=== PATIENT | female | born 1950 | race Caucasian/White ===

== ENCOUNTER 2023-12-09 15:41 | Inpatient (IN) ==
[2023-12-09] MEDS ORDERED: SODIUM CHLORIDE 0.9% 250 ML IV PRN (16:04)
--- NOTE | 2023-12-09 16:09 | Emergency Department Note ---
Impression & Plan Anemia, Generalized weakness ED Provider Note NAME: MICHELLE DOWNEY AGE: 73 SEX: F : 1950 ARRIVES VIA: Walk-In INFORMANT: Patient, ED PROVIDER(S): Cipriano Hardin DO CHIEF COMPLAINT: Weakness HPI: The patient is a 73-year-old female who presented to the emergency department for generalized weakness. She has been noticing shortness of breath with exertion as well as generalized weakness over the course the last few weeks. She states her symptoms became worse this week. She went to see her family doctor. She had outpatient laboratory studies ordered. She presented to the emergency department because of anemia. The patient denies having any black or tarry stools. She has not had a blood transfusion in the past. She denies having any chest pain. She has noticed some swelling in her legs ROS: See above HPI for pertinent positives & negatives. A total of 10 systems reviewed and were otherwise negative. PAST MEDICAL HISTORY: See Below PAST SURGICAL HISTORY: See Below FAMILY HISTORY: See Below SOCIAL HISTORY: See Below HOME MEDICATIONS: See Below ALLERGIES: See Below VITALS: See Below PHYSICAL EXAMINATION: GENERAL: Patient is awake alert in no acute distress patient is resting comfortably and showing no signs of anxiety EYES: The conjunctivae are pale. The pupils are round and reactive. EARS, NOSE, MOUTH AND THROAT: The nose is without any evidence of any deformity. Mucous membranes are moist. Tongue is midline. NECK: The neck is nontender and supple. RESPIRATORY: Normal respiratory effort is noted there is no evidence of wheezing rhonchi or rales CARDIOVASCULAR: Regular rate and rhythm noted there no murmurs rubs or gallops normal S1 normal S2. GASTROINTESTINAL: The abdomen is soft. Abdomen is nontender. Rectal exam revealed brown stool which was heme-negative. MUSCULOSKELETAL/EXTREMITIES: There is no evidence of gross deformity full range of motion is noted in the hips and shoulders. SKIN: Skin is dry. Skin was pale. Pedal edema was noted bilaterally. NEUROLOGIC: Patient is awake alert and oriented x3 MEDICAL DECISION MAKING: The patient is a 73-year-old female who presented to the emergency department at the request of her primary care physician. The patient has not been feeling well. The patient has been having generalized weakness. The patient had outpatient laboratory studies obtained which did reveal signs of anemia. The patient was not found to have signs of GI bleeding on my physical exam. I discussed the patient's laboratory and radiographic studies with her. I discussed her condition with the on-call [facility] hospitalist. They have agreed to evaluate the patient in the emergency department for further management and disposition. I did consent the patient for blood transfusion. Blood transfusion was ordered by myself. Triage Nursing notes reviewed. Prior medical records reviewed Vital Signs: reviewed and remarkable for no significant abnormalities Differential diagnosis: Infection, dehydration, metabolic abnormality, hypo/hyperglycemia, electrolyte disturbance, anemia, hypoxia, cardiac sources, intracerebral event, toxicologic, neurologic, as well as other pathologies. ER treatment provided: See below Diagnostics interpreted by me: ECG: EKG was obtained in the emergency department. My interpretation is normal sinus rhythm at 65 bpm. There is no ectopy. There is no acute ST segment abnormalities noted. No previous tracing was available Cardiac Monitoring: An order was placed for continuous cardiac monitoring. The monitor shows a rate of 64 bpm with sinus rhythm. Laboratory studies: As stated above and show below. Imaging studies: See below. Radiographic imaging was reviewed by myself Consultation(s): I discussed this case with Dr. Orta who is on-call for the [facility]. ED COURSE: Procedures: none Critical care time I have personally spent greater than 45 minutes of critical care time in the direct management of this patient. This includes bedside care, interpretation of diagnostic studies, and testing, discussion with consultants, patient, and family members, and other required patient management activities. This 45 minutes is in excess of all separately billable procedures. Past Med/Surg History Problem List (Updated 12/09/23 @ 20:49 by Garett Guerrero MD) Hernia of abdominal wall Decreased appetite Generalized weakness (Acute) Anemia (Acute) Encounter for Medicare annual wellness exam Dyslipidemia (high LDL; low HDL) Hyperlipidemia Chronic constipation Migraines Hypothyroid Arthritis Anxiety with depression Hypertension Type 2 diabetes mellitus GERD without esophagitis Vision problem Medical History Seizure Surgical History H/O left wrist surgery History of bladder suspension procedure History of partial hysterectomy Family History Sister Breast cancer Denies family history of Ovarian cancer Prostate cancer Myocardial infarction Colorectal cancer Social History Smoking Status: Never smoker Second Hand Exposure: Yes; Do You Dip or Chew Tobacco: No; Hx Alcohol Use: No Hx Substance Use: No Preferred Language: Ukrainian Communication Ability: Effective Visual Impairment: Limited Hearing Ability: Hard of Hearing 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 Beliefs That Will Affect Care: None marital status: / Current Living Situation: Family Current Living Situation Comment: lives with daughter current occupational status: employed current occupation: part-time at [employer] How many Children do You have: 4 Feels Safe at Home: Yes Childhood Exposure to Second-Hand Smoke: Yes (mother smoked ) Diet: regular Diet Comment: regular caffeine: Yes during the past year weight has: remained stable Dental Care, Regularly: No Physical Activity Frequency: Daily Physical Activity Frequency Comment: housework- walks at work Seatbelt Use: always Sunscreen Use: No Allergies Allergies Allergy/AdvReac Type Severity Reaction Status Date / Time No Known Allergies Allergy Verified 11/02/23 13:00 Home Meds Home Medications Medication Instructions Recorded Confirmed pantoprazole 40 mg tablet,delayed 40 mg PO DAILY PRN Heartburn 12/09/23 12/09/23 release Previous Rx's Medication Instructions Recorded blood-glucose meter (Blood Glucose #1 ea 05/08/21 Monitoring kit) atorvastatin 20 mg tablet 20 mg PO QPM #90 tabs 04/01/23 losartan 100 mg tablet 100 mg PO DAILY #90 tabs 07/06/23 sertraline 50 mg tablet 75 mg (1.5 x 50 mg) PO DAILY #135 11/02/23 tabs levothyroxine 125 mcg tablet 125 mcg PO DAILY #14 tabs 11/30/23 Results & Data (ED) Vital Signs Vital Signs - 24 hr 12/09/23 15:42 12/09/23 16:00 12/09/23 16:00 Temperature 37.0 C Temperature Source Temporal Artery Scan Pulse Rate 77 67 67 Pulse Rate from SpO2 Sensor 68 Respiratory Rate 19 16 Respiratory Effort / Characteristics Non-Labored Spontaneous Respiratory Depth Normal Blood Pressure 124/53 L Blood Pressure Mean 76 Pulse Oximetry 93 98 Oxygen Delivery Method Room Air Sepsis Recent Fever Within 48 Hours No Sepsis New/Unexplained Change in Mental Status No Sepsis Action Taken by Nursing No Action Required 12/09/23 16:20 12/09/23 16:36 12/09/23 17:18 Temperature Temperature Source Pulse Rate 68 66 Pulse Rate from SpO2 Sensor 68 68 Respiratory Rate 21 16 Respiratory Effort / Characteristics Respiratory Depth Blood Pressure Blood Pressure Mean Pulse Oximetry 94 93 95 Oxygen Delivery Method Room Air Sepsis Recent Fever Within 48 Hours Sepsis New/Unexplained Change in Mental Status Sepsis Action Taken by Nursing 12/09/23 17:33 12/09/23 18:03 12/09/23 18:15 Temperature Temperature Source Pulse Rate 70 71 70 Pulse Rate from SpO2 Sensor 69 72 69 Respiratory Rate 18 25 H 23 Respiratory Effort / Characteristics Respiratory Depth Blood Pressure Blood Pressure Mean Pulse Oximetry 97 96 95 Oxygen Delivery Method Sepsis Recent Fever Within 48 Hours Sepsis New/Unexplained Change in Mental Status Sepsis Action Taken by Nursing 12/09/23 18:30 12/09/23 18:30 12/09/23 18:48 Temperature 37 C Temperature Source Oral Pulse Rate 68 67 Pulse Rate from SpO2 Sensor 69 Respiratory Rate 21 22 Respiratory Effort / Characteristics Respiratory Depth Blood Pressure 131/62 131/62 143/67 H Blood Pressure Mean 85 86 92 Pulse Oximetry 95 96 Oxygen Delivery Method Sepsis Recent Fever Within 48 Hours Sepsis New/Unexplained Change in Mental Status Sepsis Action Taken by Nursing 12/09/23 18:50 12/09/23 19:00 12/09/23 19:05 Temperature 36.9 C Temperature Source Oral Pulse Rate 67 66 66 Pulse Rate from SpO2 Sensor 65 Respiratory Rate 21 22 18 Respiratory Effort / Characteristics Respiratory Depth Blood Pressure 143/67 H 137/79 Blood Pressure Mean 92 98 Pulse Oximetry 97 96 98 Oxygen Delivery Method Sepsis Recent Fever Within 48 Hours Sepsis New/Unexplained Change in Mental Status Sepsis Action Taken by Nursing 12/09/23 19:05 12/09/23 19:35 12/09/23 19:36 Temperature 36.9 C 36.9 C Temperature Source Oral Oral Pulse Rate 66 65 Pulse Rate from SpO2 Sensor 66 Respiratory Rate 18 21 Respiratory Effort / Characteristics Respiratory Depth Blood Pressure 144/71 H 142/63 H Blood Pressure Mean 95 89 Pulse Oximetry 97 96 Oxygen Delivery Method Sepsis Recent Fever Within 48 Hours Sepsis New/Unexplained Change in Mental Status Sepsis Action Taken by Nursing 12/09/23 19:57 12/09/23 20:01 12/09/23 20:03 Temperature Temperature Source Pulse Rate 69 71 Pulse Rate from SpO2 Sensor 70 70 Respiratory Rate 23 13 Respiratory Effort / Characteristics Respiratory Depth Blood Pressure 146/52 H Blood Pressure Mean 79 Pulse Oximetry 96 98 Oxygen Delivery Method Sepsis Recent Fever Within 48 Hours Sepsis New/Unexplained Change in Mental Status Sepsis Action Taken by Nursing 12/09/23 20:08 12/09/23 20:27 12/09/23 20:33 Temperature Temperature Source Pulse Rate 64 67 64 Pulse Rate from SpO2 Sensor 66 64 Respiratory Rate 18 20 Respiratory Effort / Characteristics Respiratory Depth Blood Pressure 142/74 H Blood Pressure Mean 96 Pulse Oximetry 93 93 Oxygen Delivery Method Sepsis Recent Fever Within 48 Hours Sepsis New/Unexplained Change in Mental Status Sepsis Action Taken by Alf Medications Current Medication List: was personally reviewed by me Laboratory Data Attestation: I reviewed the patient's lab results. 12/09/23 16:00 12/09/23 16:00 Lab Results 12/09/23 12/09/23 12/09/23 Range/Units 15:52 16:00 16:36 WBC 4.60 L (4.8-10.8) K/ul RBC 1.17 L (4.20-5.40) M/uL Hgb 5.6 L* (12.0-16.0) g/dl Hct 16.1 L* (37.0-47.0) % MCV 137.6 H (80.0-100.0) fL MCH 47.9 H (25.0-34.0) pg MCHC 34.8 (32.0-36.0) g/dL RDW Std Deviation 75.7 H (36.4-46.3) fL RDW Coeff of Harinder 18.3 H (11.5-14.5) % Plt Count 131 (130-400) K/uL MPV 11.3 (9.4-12.4) fL Immature Gran % (Auto) 0.2 % Neut % (Auto) 65.7 % Lymph % (Auto) 29.3 % [place] % (Auto) 3.7 % Eos % (Auto) 1.1 % Baso % (Auto) 0.0 % Reticulocyte % (Auto) 1.62 (0.50-2.00) % Neut # (Auto) 3.02 (1.40-6.50) K/uL Lymph # (Auto) 1.35 (1.20-3.40) K/uL [place] # (Auto) 0.17 (0.11-0.59) K/uL Eos # (Auto) 0.05 (0.00-0.50) K/uL Baso # (Auto) 0.00 (0.00-0.20) K/uL Reticulocyte # 0.020 (0.020-0.100) 10^6/uL Immature Gran # (Auto) 0.01 (0.01-0.20) K/uL Polychromasia 2+ Macrocytosis Present Ovalocytes 1+ PT 12.1 H (9.0-12.0) Seconds INR 1.1 (0.9-1.1) APTT 25 (21-31) Seconds PTT Ratio 0.9 Sodium 140 (136-145) mmol/L Potassium 3.9 (3.5-5.1) mmol/L Chloride 107 (98-107) mmol/L Carbon Dioxide 29 (21-32) mmol/L Anion Gap 4 (3-11) BUN 13 (6-23) mg/dl Creatinine 0.75 (0.6-1.2) mg/dl Est Cr Clr Drug Dosing 58.3 ml/min Est GFR ( Amer) 90.4 ml/min Est GFR (Non-Af Amer) 78.0 ml/min BUN/Creatinine Ratio 17.3 (10-20) Glucose 138 H (70-99(Fasting)) mg/dl Calcium 9.0 (8.6-10.3) mg/dl Iron 228 H (35-150) mcg/dl TIBC TNP Unsaturated IBC < 55 L (155-355) mcg/dl Transferrin % Sat TNP Ferritin 121.5 (8-388) ng/ml Total Bilirubin 2.3 H (0.2-1.0) mg/dl AST 39 (13-39) U/L ALT 30 (7-52) U/L Alkaline Phosphatase 66 (34-104) U/L Troponin I High Sens 3.3 (0-14) pg/ml Total Protein 6.6 (6.0-8.3) gm/dl Albumin 4.2 (3.4-5.0) gm/dl Globulin 2.4 L (2.5-4.0) gm/dl Albumin/Globulin Ratio 1.8 (0.9-2) Lipase 20 (11-82) U/L Vitamin B12 < 50 L (180-914) pg/ml Folate 20.14 (>5.38) ng/ml Blood Type A Positive Blood Type Recheck A Positive Antibody Screen NEGATIVE Crossmatch See Detail Administered Medications Discontinued Medications Ioversol (Optiray 320 125ml) 93 ml IV ONCE ONE Stop: 12/09/23 20:56 Last Admin: 12/09/23 20:55 Dose: 93 ml Documented By: АННА Imaging Data Attestation: I personally reviewed and interpreted this imaging study as follows: My Impression: 1 view chest x-ray was obtained in the emergency department. My interpretation is no free air or definite infiltrate, final report below. Radiologist's Impression: Chest X-Ray 12/09/23 16:04 XR chest 1V portable HISTORY: 73 years-old Female Chest pain, nonspecific COMPARISON: None TECHNIQUE: AP view of the chest FINDINGS: Cardiac silhouette is enlarged. Atherosclerosis of the aorta. No pneumothorax, pleural effusion or airspace consolidation. Mild linear left basilar atelectasis versus scarring. The bones of the chest appear grossly intact. Spondylitic spurring of the spine. IMPRESSION: Cardiomegaly without acute process. ACT 112: Negative or not required by law. The above report was generated using voice recognition software. It may contain grammatical, syntax or spelling errors. Electronically signed by: Thomas Henderson M.D. 12/09/2023 4:49 PM Discharge Plan Visit Data Chief Complaint: Referred by Doctor Stated Complaint: HEMOGLOBIN LOW ED Provider: Cipriano Hardin Discharge Problem: Anemia, Generalized weakness Patient Disposition: Admitted As Inpatient Discharge Instructions Interventions: ED Discharge Assessment Last Done: 12/09/23 20:52 Forms Stand Alone Forms: My [facility] [employer] Prescriptions Prescriptions: No Action (DME) blood-glucose meter [Blood Glucose Monitoring] Kit See Rx Instructions .ROUTE .MEDSUPPLY Qty: 1 0RF Rx Instructions: TEST ONCE DAILY; DX CODE- E11.9 atorvastatin 20 mg tablet 20 mg PO QPM Qty: 90 5RF losartan 100 mg tablet 100 mg PO DAILY Qty: 90 1RF levothyroxine 125 mcg tablet 125 mcg PO DAILY Qty: 14 0RF sertraline 50 mg tablet 75 mg PO DAILY Qty: 135 2RF pantoprazole 40 mg tablet,delayed release (DR/EC) 40 mg PO DAILY PRN (Reason: Heartburn) Referrals Referrals: Soren Gonzales CRNP [Primary Care Provider] - Discharge Problem: Anemia Qualifiers: Anemia type: unspecified type Qualified Code(s): D64.9 - Anemia, unspecified
[2023-12-09 16:38] LABS: Hematocrit (blood only) 16.1 % (37.0-47.0); Hemoglobin 5.6 g/dl (12.0-16.0); Mean Corpuscular Hemoglobin 47.9 pg (25.0-34.0); Mean Corpuscular Hgb Conc 34.8 g/dL (32.0-36.0); Mean Corpuscular Volume 137.6 fL (80.0-100.0); Mean Platelet Volume 11.3 fL (9.4-12.4); Platelet Count 131 K/uL (130-400); RDW Coefficient of Variation 18.3 % (11.5-14.5); RDW Standard Deviation 75.7 fL (36.4-46.3); Red Blood Count 1.17 M/uL (4.20-5.40)
[2023-12-09 16:48] LABS: Alanine Aminotransferase 30 U/L (7-52); Albumin Globulin Ratio 1.8 (0.9-2); Albumin Level 4.2 gm/dl (3.4-5.0); Alkaline Phosphatase 66 U/L (34-104); Anion Gap 4 (3-11); Aspartate Aminotransferase 39 U/L (13-39); BUN Creatinine Ratio 17.3 (10-20); Bilirubin,Total 2.3 mg/dl (0.2-1.0); Blood Urea Nitrogen 13 mg/dl (6-23); Carbon Dioxide 29 mmol/L (21-32); Chloride 107 mmol/L (98-107); Creatinine Clr Calc Pharmacy 58.3 ml/min; Est GFR (African American) 90.4 ml/min; Globulin 2.4 gm/dl (2.5-4.0); Glucose 138 mg/dl (70-99(Fasting)); Lipase 20 U/L (11-82); Potassium 3.9 mmol/L (3.5-5.1); Sodium 140 mmol/L (136-145); Total Protein 6.6 gm/dl (6.0-8.3)
--- NOTE | 2023-12-09 16:50 | XRay Report ---
XR chest 1V portable HISTORY: 73 years-old Female Chest pain, nonspecific COMPARISON: None TECHNIQUE: AP view of the chest FINDINGS: Cardiac silhouette is enlarged. Atherosclerosis of the aorta. No pneumothorax, pleural effusion or ai rspace consolidation. Mild linear left basilar atelectasis versus scarring. The bones of the chest ap pear grossly intact. Spondylitic spurring of the spine. IMPRESSION: Cardiomegaly without acute process. ACT 112: Negative or not required by law. The above report was generated using voice recognition software. It may contain grammatical, syntax o r spelling errors. Electronically signed by: Thomas Henderson M.D. 12/09/2023 4:49 PM
[2023-12-09 16:51] LABS: INR 1.1 (0.9-1.1); Partial Thromboplastin Ratio 0.9; Partial Thromboplastin Time 25 Seconds (21-31); Prothrombin Time 12.1 Seconds (9.0-12.0)
[2023-12-09 16:52] LABS: Troponin I High Sensitivity 3.3 pg/ml (0-14)
[2023-12-09 17:06] LABS: Eosinophils # (auto) 0.05 K/uL (0.00-0.50); Eosinophils % (auto) 1.1 %; Immature Granulocytes # (auto) 0.01 K/uL (0.01-0.20); Immature Granulocytes % (auto) 0.2 %; Lymphocytes # (auto) 1.35 K/uL (1.20-3.40); Lymphocytes % (auto) 29.3 %; Macrocytosis Present; Monocytes # (auto) 0.17 K/uL (0.11-0.59); Monocytes % (auto) 3.7 %; Neutrophils # (auto) 3.02 K/uL (1.40-6.50); Neutrophils % (auto) 65.7 %; Ovalocytes 1+; Polychromasia 2+; Reticulocyte % 1.62 % (0.50-2.00)
--- NOTE | 2023-12-09 18:46 | History & Physical Report ---
Date of Service December 09, 2023 Assessment & Plan (1) Anemia: (2) Generalized weakness: (3) Hypothyroid: (4) Dyslipidemia (high LDL; low HDL): (5) Anxiety with depression: (6) Hypertension: (7) Type 2 diabetes mellitus: (8) Decreased appetite: (9) Hernia of abdominal wall: Plan 1. Anemia/generalized weakness - patient with Hgb, 5.6 upon admission - 2 units RBC's (leukoreduced) ordered, being given - post RBC administration H&H ordered - H&H, q8hr - MCV, 137.6; RDW, 18.3; TBili, 2.3; Retic Ct, 1.62% - iron panel: Fe, 228; ferritin, 121.5; transferrin sat % - B12, < 50; folate, 20.14 - B12 very low --> 1000 mcg, IM, daily (consider pernicious anemia in addition to nutritional deficiency) - LDH, 2228; peripheral blood smear pending 2. Reducible mass/mass in lower abdominal cavity, decreased appetite - mildly tender, 3 yr history but patient had not brought to attention of PCP - decreased appetite over last few years, 45 lb weight loss in 2.5 years, estimates daily caloric intake of 400 kcal - TProt, WNL; albumin, WNL - CT (w/ IV contrast)-AP pending - phosphorus pending - consider appetite stimulant 3. Hypothyroidism - TSH, 0.394 - continue levothyroxine, 125 mcg, daily, AM 4. Dyslipidemia - continue Lipitor, 20 mg, PO, QHS 5. Anxiety/depression - continue Zoloft, 75 mg, PO, daily 6. Hypertension - continue losartan, 100 mg, PO, daily 7. T2DM - last A1C, 6.5; patient has stopped taking her metformin - insulin aspart ordered (for meals and carb correction), glargine not ordered given patient's decreased appetite and caloric intake FENGI: T2DM diet ordered, Disposition: Med-Tele Code Status: Full DVT prophylaxis: SCD History of Present Illness Chief Complaint: fatigue, less energy Primary Care Provider: DENNIS Richardson Patient is 73 yo F w/ PMHx of T2DM, HTN, hypothyroidism, chronic constipation, anxiety/depression, generalized weakness, leg swelling of 2-2.5 months (end of September) presents to the ED after outpatient labs today showed severe anemia (Hgb, 5.9; repeat Hgb in ED, 5.6. Patient noticed a few months ago that she was vomiting frequently (whitish-foamy stuff)and stopped taking many of her medications. Patient only continued levothyroxine, calcium, Lipitor, losartan. Patient continued taking intermittently the Protonix and sertraline. Patient has repeatedly declined a colonoscopy but was last screened for CRC using Cologuard about 8 months ago. Patient has not noticed any roseanne blood in her stool at all. Patient is a never smoker has not drank alcohol for ~ 4 yrs but was a social drinker in the past (< 7 drinks/week). Patient has not had much of an appetite for ~ 5-6 months. Typical daily intake has probably been ~ 400 calories and patient has lost 18 kg in last 2.5 yrs. Patient's last mammogram was in 2018. Patient has a family Hx of cancer--mom had stomach cancer, sister had breast cancer and lung cancer (was never smoker, from it in her 30s in 1985, 2 yrs older than pt) Patient is uncertain what she would like her code status to be. Allergies Allergy/AdvReac Type Severity Reaction Status Date / Time No Known Allergies Allergy Verified 11/02/23 13:00 Home Medications Medication Instructions Recorded Confirmed Type blood-glucose meter (Blood Glucose #1 ea 05/08/21 12/09/23 Rx Monitoring kit) atorvastatin 20 mg tablet 20 mg PO QPM #90 tabs 04/01/23 12/09/23 Rx losartan 100 mg tablet 100 mg PO DAILY #90 tabs 07/06/23 12/09/23 Rx sertraline 50 mg tablet 75 mg (1.5 x 50 mg) PO DAILY #135 11/02/23 12/09/23 Rx tabs levothyroxine 125 mcg tablet 125 mcg PO DAILY #14 tabs 11/30/23 12/09/23 Rx pantoprazole 40 mg tablet,delayed 40 mg PO DAILY PRN Heartburn 12/09/23 12/09/23 History release Past Med/Surg History Problem List (Updated 12/09/23 @ 20:49 by Garett Guerrero MD) Hernia of abdominal wall Decreased appetite Generalized weakness (Acute) Anemia (Acute) Encounter for Medicare annual wellness exam Dyslipidemia (high LDL; low HDL) Hyperlipidemia Chronic constipation Migraines Hypothyroid Arthritis Anxiety with depression Hypertension Type 2 diabetes mellitus GERD without esophagitis Vision problem Medical History Seizure Surgical History H/O left wrist surgery History of bladder suspension procedure History of partial hysterectomy Family History Sister Breast cancer Denies family history of Ovarian cancer Prostate cancer Myocardial infarction Colorectal cancer Social History Smoking Status: Never smoker Second Hand Exposure: Yes; Do You Dip or Chew Tobacco: No; Hx Alcohol Use: No Hx Substance Use: No Preferred Language: Georgian Communication Ability: Effective Visual Impairment: Limited Hearing Ability: Hard of Hearing Enzyme Chemist Required: No Beliefs That Will Affect Care: None marital status: / Current Living Situation: Family Current Living Situation Comment: lives with daughter current occupational status: employed current occupation: part-time at [employer] How many Children do You have: 4 Feels Safe at Home: Yes Childhood Exposure to Second-Hand Smoke: Yes (mother smoked ) Diet: regular Diet Comment: regular caffeine: Yes during the past year weight has: remained stable Dental Care, Regularly: No Physical Activity Frequency: Daily Physical Activity Frequency Comment: housework- walks at work Seatbelt Use: always Sunscreen Use: No Review of Systems Constitutional: + weakness, + anorexia and + weight loss (~ 45 lbs over 2.5 y rs) Eyes: + worsening vision (blurriness, patient knows she needs cataract surgery) Respiratory: no dyspnea Cardiovascular: + palpitations (baseline palpitations ) Gastrointestinal: + constipation (baseline) Genitourinary: no dysuria, no urinary frequency and no urinary urgency Neurologic: + unsteadiness, + generalized weakness, + loss of sensation (lower legs, cramps in feet, calves, hands), + tingling, + numbness (in feet) and + headache(s) (baseline MÁRQUEZ's) Psychiatric: + irritability, + anxiety and + difficul ty concentrating Physical Exam Constitutional: cooperative Respiratory: normal respiratory effort, lungs clear to auscultation Cardiovascular: Rate/Rhythm: regular rate and regular rhythm Heart Sounds: + murmur (noted over upper r. sternal border, radiates to carotid arteries) Gastrointestinal (Abdomen): Inspection/Auscultation: normal bowel sounds Percussion/Palpation: + hernia (probable reducible hernia/mass of lower abdomen) and + abdominal mass; abdomen nontender and abdomen not rigid Neurologic: normal touch/pain/proprioception, moves all extremities and awake Psychiatric: Orientation: alert, oriented x 3 and cooperative Results & Data Results & Data Vital Signs (Past 12 Hours) Vital Signs Temp Pulse Resp BP Pulse Ox O2 Del Method 12/09/23 18:30 37 C 68 21 131/62 95 12/09/23 17:33 70 18 97 12/09/23 17:18 66 16 95 12/09/23 16:36 68 21 93 12/09/23 16:20 94 Room Air 12/09/23 16:00 67 16 98 12/09/23 16:00 67 12/09/23 15:42 37.0 C 77 19 124/53 L 93 Room Air Supervising Physician Co-Signing Physician Notes Patient seen and examined, chart reviewed, case discussed with Dr. Spear and I agree with the assessment and plan as above except as otherwise noted Labs and images reviewed Gayla is a 73-year-old female with a history of type 2 diabetes, dyslipidemia, hypertension, GERD, anxiety/depression, heart palpitations who has not had colonoscopy and declined this at primary care visits who presents with generalized weakness with bilateral lower extremity swelling progressive over around 2 months. She has had Cologuard screening as an outpatient but has never had a colonoscopy, and denies hematochezia/melena. No epigastric pain. On ER assessment she is found to have a hemoglobin of 5.9 for which 2 units have been ordered for transfusion. Hemoccult is negative in the ER. She is normotensive, is not tachycardic, and minimally symptomatic despite a hemoglobin less than 6 is very consistent with chronic anemia and shows no signs of acute bleeding. BUN is not elevated discussed upper GI bleed and she has no epigastric pain. Differential does show macrocytosis cirrhosis with ovalocytes, and her MCV is 137 raising suspicion for B12 deficiency. B12/folate have been ordered Patient does have a family history of leukemia. Peripheral smear is pending. She is slightly leukopenic, she is not pancytopenic. Will continue to assess for nutritional deficiencies, if concern for aplastic anemia rises or abnormal cells are seen then will consult hematology. Patient has had significant weight loss with very poor p.o. intake only around 4 to 500 elza/day. Lipase is not elevated. She has a slightly elevated bilirubin, but transaminases are normal. Peripheral smear, LDH are pending to evaluate for potential hemolysis. No infectious symptoms agreeable to colonoscopy for colon cancer screening given her anemia. She does have a reducible left abdominal hernia. Endorses some abdominal discomfort. Is very concerned about potential cancer. CTA/P with contrast is pending. Agree with assessment and management above Addendum 944hrs B12 levels are undetectable. Folate levels normal. Unsaturated IBC is low with elevated serum iron and normal ferritin. Peripheral smear remains pending.? 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 Serum iron and bilirubin are elevated consistent with this. Peripheral smear is pending, if schistocytes are present this would be more consistent with intravascular hemolysis. Reticulocyte index 0.25, severely hypoproliferative. CT remains pending; given that her folate is normal, her albumin is normal, her iron does not appear suppressed have a higher suspicion for pernicious anemia which may be related to gastrointestinal malignancy and agree patient should have colon cancer screening. (1) Anemia Anemia type: unspecified type Qualified Code(s): D64.9 - Anemia, unspecified
--- NOTE | 2023-12-09 19:37 | Billing Data ---
Date of Service December 09, 2023 Coding Level of Care Code 95280 INT INP/OBS CARE
[2023-12-09 19:41] LABS: Iron 228 mcg/dl (35-150); Unsaturated Iron Binding Cap < 55 mcg/dl (155-355)
[2023-12-09 19:59] LABS: Ferritin 121.5 ng/ml (8-388)
[2023-12-09] MEDS ORDERED: GLUCOSE 10 TAB/TUBE PO PRN (20:12)
[2023-12-09] MEDS ORDERED: GLUCOSE 40% GEL 15 GM TUBE PO PRN (20:12)
[2023-12-09] MEDS ORDERED: GLUCAGON FOR INJ 1 MG VIAL SQ PRN (20:12)
[2023-12-09] MEDS ORDERED: CARBOHYDRATES FOR HYPOGLYCEMIA PO PRN (20:12)
[2023-12-09] MEDS ORDERED: DEXTROSE 50% 50 ML SYRINGE IV PRN (20:12)
[2023-12-09 20:34] LABS: Folate (Folic Acid),Ser orPlas 20.14 ng/ml (>5.38)
[2023-12-09 20:47] LABS: Vitamin B12 < 50 pg/ml (180-914)
[2023-12-09] MEDS: OPTIRAY 320 125ml IV ONE (20:55)
[2023-12-09 21:06] LABS: Lactate Dehydrogenase 2228 U/L (86-244)
[2023-12-09] MEDS ORDERED: PNEUMOCOCCAL VACCINE (PCV20) 20-VAL CONJ-DIP CRM/PF 0.5 ML SYR IM ONE (21:32)
[2023-12-09] MEDS ORDERED: PANTOprazole 40 MG TAB PO PRN (21:40)
[2023-12-09] MEDS: INSULIN ASPART PER UNIT CHARGE SC SCH (21:55)
[2023-12-09] MEDS: ATORVASTATIN 20 MG TAB PO SCH (22:30)
--- NOTE | 2023-12-09 23:13 | CT Scan Report ---
Exam(s): CT ABDOMEN + PELVIS With Contrast IV Amt: 93ml EXAM: CT Abdomen and Pelvis With Intravenous Contrast CLINICAL HISTORY: Reason for exam: anemia, LLQ tender hernia. TECHNIQUE: Axial computed tomography images of the abdomen and pelvis with intravenous contrast. CTDI is 14.63 mGy and DLP is 706.54 mGy-cm. Automated exposure control was utilized for the study. A dose lowering technique was utilized adhering to the principles of ALARA. CONTRAST: Patient received 93ml of IV contrast COMPARISON: No relevant prior studies available. FINDINGS: Lung bases: Unremarkable. No mass. No consolidation. ABDOMEN: Liver: Unremarkable. No focal hepatic lesion. Gallbladder and bile ducts: Unremarkable. No calcified stones. No ductal dilation. Pancreas: Unremarkable. No mass. No ductal dilation. Spleen: Unremarkable. No splenomegaly. Adrenals: Unremarkable. No mass. Kidneys and ureters: Unremarkable. No hydronephrosis or delayed nephrogram. Stomach and bowel: Moderate fecal retention, correlate for fecal impaction. LEFT inguinal hernia contains multiple loops of small bowel, which are nonobstructed. No acute diverticulitis. No bowel obstruction. No free air. PELVIS: Appendix: No findings to suggest acute appendicitis. Bladder: Unremarkable. No mass. Reproductive: Unremarkable as visualized. ABDOMEN and PELVIS: Intraperitoneal space: See above. Bones/joints: Degenerative changes of the spine. No acute fracture. No dislocation. Soft tissues: See above. Vasculature: Atherosclerotic changes of the aorta. No abdominal aortic aneurysm. Lymph nodes: Unremarkable. No enlarged lymph nodes. IMPRESSION: 1. No acute diverticulitis. No bowel obstruction. No free air. 2. Moderate fecal retention, correlate for fecal impaction. 3. LEFT inguinal hernia contains multiple loops of small bowel, which are nonobstructed. Electronically signed by: Alf Resendez MD 12/09/23 23:12 PM
[2023-12-10 02:55] LABS: Hematocrit (blood only) 23.8 % (37.0-47.0); Hemoglobin 8.3 g/dl (12.0-16.0); Mean Corpuscular Hemoglobin 38.1 pg (25.0-34.0); Mean Corpuscular Hgb Conc 34.9 g/dL (32.0-36.0); Mean Corpuscular Volume 109.2 fL (80.0-100.0); Mean Platelet Volume 11.6 fL (9.4-12.4); Platelet Count 107 K/uL (130-400); Red Blood Count 2.18 M/uL (4.20-5.40); White Blood Count 3.77 K/ul (4.8-10.8)
[2023-12-10 02:59] LABS: Albumin Globulin Ratio 1.7 (0.9-2); Albumin Level 3.8 gm/dl (3.4-5.0); BUN Creatinine Ratio 20.3 (10-20); Calcium 9.3 mg/dl (8.6-10.3); Creatinine Clr Calc Pharmacy 68.1 ml/min; Est GFR (African American) 101.2 ml/min; Est GFR (Non-African American) 87.3 ml/min; Globulin 2.2 gm/dl (2.5-4.0); Potassium 3.7 mmol/L (3.5-5.1)
[2023-12-10 03:28] LABS: Anisocytosis Present; Basophils # (auto) 0.01 K/uL (0.00-0.20); Basophils % (auto) 0.3 %; Eosinophils # (auto) 0.09 K/uL (0.00-0.50); Eosinophils % (auto) 2.4 %; Immature Granulocytes # (auto) 0.01 K/uL (0.01-0.20); Immature Granulocytes % (auto) 0.3 %; Lymphocytes # (auto) 1.63 K/uL (1.20-3.40); Lymphocytes % (auto) 42.7 %; Macrocytosis Present; Monocytes # (auto) 0.13 K/uL (0.11-0.59); Monocytes % (auto) 3.4 %; Neutrophils # (auto) 1.95 K/uL (1.40-6.50); Neutrophils % (auto) 50.9 %; Ovalocytes 1+; Polychromasia 1+; Tear Drop Cells 1+
[2023-12-10] MEDS: ACETAMINOPHEN 500 MG TAB PO PRN (08:10)
[2023-12-10] MEDS: LOSARTAN POTASSIUM 50 MG TAB PO SCH (08:11)
[2023-12-10] MEDS: LEVOTHYROXINE SODIUM 125 MCG TABLET PO SCH (08:11)
[2023-12-10] MEDS: SERTRALINE HCL 50 MG TABLET PO SCH (08:11)
[2023-12-10] MEDS: CYANOCOBALAMIN 1000 MCG/ML VIAL IM SCH (08:12)
[2023-12-10] MEDS ORDERED: POLYETHYLENE (MIRALAX) 17 GM PACK PO PRN (11:05)
[2023-12-10] MEDS ORDERED: bisacodyL 10 MG SUPP PR PRN (11:07)
--- NOTE | 2023-12-10 11:25 | Oncology Consultation ---
Date of Consultation December 10, 2023 Assessment & Plan (1) Anemia: Plan Patient who presented with severe macrocytic anemia, fatigue and significant weight loss. Workup revealed severely low B12 level, significantly elevated LDH, mild unconjugated hyperbilirubinemia. -Possible differentials for severe macrocytic anemia include severe B12 deficiency, hemolysis, underlying hematologic malignancy such as plasma cell dyscrasia or MDS. -STONE is negative and not consistent with autoimmune hemolytic anemia. Haptoglobin pending -Recommend obtaining CT chest to evaluate for underlying malignancy such as lymphoma in the setting of significant weight loss and significantly elevated LDH -Also obtain SPEP with MARLY, continue immunoglobulins, serum free light chains to rule out plasma cell dyscrasia as this could potentially cause spuriously low B12 level and severe anemia. -If above workup is unremarkable, would recommend bone marrow biopsy to evaluate for MDS/leukemia Thank you for this consult. Hematology will continue following patient while in the hospital. Please feel free to call if you have any further questions. History of Present Illness Reason for Consultation: Severe anemia Attending Physician: Caden Davis MD History of Present Illness 73-year-old female presented to the ER at [facility] with generalized weakness. Labs obtained on admission revealed severe anemia with hemoglobin of 5.9, hematocrit of 17.2, MCV was 138. Workup for anemia revealed markedly elevated LDH at 2228. B12 level was less than 50, folate was normal at 20 with ferritin of 121, Reticulocyte count was 0.02. Total bilirubin elevated at 2.6 with direct bilirubin of 0.5. She was given 2 units PRBC transfusion with improvement in hemoglobin to 8.3 and hematocrit of 23.3.Peripheral smear review revealed severe microcytic anemia with some atypical findings in the red cells including a few nucleated red cells with hyperchromasia and nuclear membrane abnormalities. CT abdomen and pelvis on 12/09/2023 revealed moderate fecal retention, left inguinal hernia with multiple loops of small bowel which nonobstructed. She complains of poor appetite, more than 40 pounds weight loss over the past 3 to 4 months. Has not had a colonoscopy more than 10 years. Endorses family history of GI malignancies. Allergies Allergy/AdvReac Type Severity Reaction Status Date / Time No Known Allergies Allergy Verified 11/02/23 13:00 Home Medications Medication Instructions Recorded Confirmed Type blood-glucose meter (Blood Glucose #1 ea 05/08/21 12/09/23 Rx Monitoring kit) atorvastatin 20 mg tablet 20 mg PO QPM #90 tabs 04/01/23 12/09/23 Rx losartan 100 mg tablet 100 mg PO DAILY #90 tabs 07/06/23 12/09/23 Rx sertraline 50 mg tablet 75 mg (1.5 x 50 mg) PO DAILY #135 11/02/23 12/09/23 Rx tabs levothyroxine 125 mcg tablet 125 mcg PO DAILY #14 tabs 11/30/23 12/09/23 Rx pantoprazole 40 mg tablet,delayed 40 mg PO DAILY PRN Heartburn 12/09/23 12/09/23 History release Patient History Medical History Seizure Surgical History H/O left wrist surgery History of bladder suspension procedure History of partial hysterectomy Family History Sister Breast cancer Denies family history of Ovarian cancer Prostate cancer Myocardial infarction Colorectal cancer Social History Smoking Status: Never smoker Second Hand Exposure: No; Do You Dip or Chew Tobacco: No; Tobacco Cessation Education Requested by Patient: No Hx Alcohol Use: No Hx Substance Use: No Preferred Language: Japanese Communication Ability: Effective Visual Impairment: Limited Hearing Ability: Hard of Hearing Consumer Analyst Required: No Beliefs That Will Affect Care: None marital status: / Current Living Situation: Family Current Living Situation Comment: lives w/ daughter Laurel current occupational status: employed current occupation: part-time at [employer] How many Children do You have: 4 Other Information That Helps Us Care for You: No Feels Safe at Home: Yes Safety Concerns: Feels Safe At This Time Childhood Exposure to Second-Hand Smoke: Yes (mother smoked ) Diet: regular Diet Comment: regular caffeine: Yes during the past year weight has: remained stable Dental Care, Regularly: No Physical Activity Frequency: Daily Physical Activity Frequency Comment: housework- walks at work Seatbelt Use: always Sunscreen Use: No Assistive Devices: None Results & Data Vital Signs (Past 12 Hours) Vital Signs Temp Pulse Pulse Resp BP BP Pulse Ox 12/10/23 11:13 36.8 C 50 L 18 122/61 94 12/10/23 07:39 61 12/10/23 07:08 36.9 C 51 L 18 150/69 H 96 12/10/23 03:34 65 12/10/23 03:13 36.7 C 59 L 18 138/67 97 12/10/23 01:05 36.5 C 60 16 148/66 H 96 12/10/23 01:05 36.5 C 60 16 148/66 H 96 12/10/23 00:31 36.5 C 59 L 16 151/65 H 97 12/09/23 23:31 36.7 C 64 16 143/69 H 93 O2 Del Method 12/10/23 11:13 Room Air 12/10/23 07:39 12/10/23 07:08 Room Air 12/10/23 03:34 12/10/23 03:13 Room Air 12/10/23 01:05 12/10/23 01:05 12/10/23 00:31 12/09/23 23:31 (1) Anemia Anemia type: unspecified type Qualified Code(s): D64.9 - Anemia, unspecified
[2023-12-10] MEDS: DOCUSATE SODIUM/SENNA 50/8.6MG TAB PO SCH (11:45)
[2023-12-10] MEDS: CEROVITE ADV FORMULA TAB PO SCH (11:45)
[2023-12-10] MEDS: POLYETHYLENE (MIRALAX) 17 GM PACK PO SCH (11:45)
[2023-12-10 12:02] LABS: Bilirubin Direct 0.5 mg/dl (0-0.2); Bilirubin,Total 2.6 mg/dl (0.2-1.0)
--- NOTE | 2023-12-10 13:11 | Hospitalist Progress Note ---
Date of Service December 10, 2023 Assessment & Plan (1) Anemia: Plan: presented after call from outside provider that she report to the ER. Generalized weakness over the last 3 to 4 months, however no acute symptoms on admission. states has had poor appetite with foamy vomit (that has resolved). Poor nutritional intake. - patient with Hgb, 5.6 upon admission --> received 2 units PRBCs - MCV, 137.6; RDW, 18.3; TBili, 2.3; Retic Ct, 1.62% - iron panel: Fe, 228; ferritin, 121.5; transferrin sat % - B12 - undetectable , folate WNL - IM B12 qAM - denies ETOH use - LDH, 2228; peripheral blood smear: severe macrocytic anemia with atypical red blood cells - may be related to B12 Deficiency, possible underlying MDS Hematology consulted, appreciate recs Add PT eval for reported weakness and balance difficulty AM haptoglobin, Copper level, CBC and CMP (2) Decreased appetite: Plan: Decreased appetite over last few years, 45 lb weight loss in 2.5 years, estimates daily caloric intake of 400 kcal - CTAP: Left inquinal hernia with multiple loops of bowel, non- obstructed. Moderate fecal rentention - patient also reports struggling with constipation - Daily Miralax and Senna - nutritional supplement added - Check B1 level, ordered - Multivitamin qAM (3) Anxiety with depression: Plan: Patient has been taking her Zoloft irregularly, but knows her mental health would benefit from consistent use - agreeable to add Remeron, start at 7.5mg - may be able to wean dose of zoloft, continue to monitor (4) Type 2 diabetes mellitus: Plan: - last A1C, 6.5; patient has stopped taking her metformin - insulin aspart ordered (for meals and carb correction) BSG ACHS Plan Chronic Stable Medical Problems: * Hypothyroidism - TSH, 0.394, continue levothyroxine * Dyslipidemia - continue Lipitor * Hypertension - continue losartan Disposition: continued inpatient stay DVT prophylaxis: SCD LM for granddaughterJennifer per patient request Admission and Anticipated Discharge Date Admission Date: December 09, 2023 Subjective Gayla was seen lying in bed. Reports overall feeling well, just tired. States that she was her normal state of health before presenting to the ER but does note that her health has declined in the last 3 months. No real cause, no workup pursued with any doctors. No signs of GI bleeding. Does not drink alcohol does not smoke. Lives with daughter who cooks food for her, she is reports she has no appetite. Denies any recent falls at home, but states she tries really hard not to fall. Does feel like her balance was off. Tele SB/SR 55-60s Review of Systems Review of Systems: All systems reviewed & are unremarkable except as noted in Subjective Physical Exam Physical Exam: General: NAD, thin, fraile appearing, VS as above Resp: normal respiratory effort, lungs clear to auscultation CV: RRR, no murmur, Abd: normal bowel sounds, non tender, no hepatosplenomegaly Extremities: Moves all extremities, no edema Neuro: A&O x3, Results & Data Results & Data Vital Signs (Past 12 Hours) Vital Signs Temp Pulse Pulse Resp BP BP Pulse Ox 12/10/23 11:13 36.8 C 50 L 18 122/61 94 12/10/23 07:39 61 12/10/23 07:08 36.9 C 51 L 18 150/69 H 96 12/10/23 03:34 65 12/10/23 03:13 36.7 C 59 L 18 138/67 97 12/10/23 01:05 36.5 C 60 16 148/66 H 96 12/10/23 01:05 36.5 C 60 16 148/66 H 96 O2 Del Method 12/10/23 11:13 Room Air 12/10/23 07:39 12/10/23 07:08 Room Air 12/10/23 03:34 12/10/23 03:13 Room Air 12/10/23 01:05 12/10/23 01:05 Laboratory Results CBC, chemistry, b12, iron studies, folatre reviewed Diagnostic Findings CTAP reviewed PG Care Time/CCT Total # of Minutes Spent Total Time Spent with Patient: Total time spent is greater than 50% in coordination of care (as documented) at patient's floor/unit and/or counseling patient: Coding Level of Care Code 59047 SUB INP/OBS CARE 3/50MIN Diagnoses Anemia D64.9 Anemia type: unspecified type Decreased appetite R63.0 Anxiety with depression F41.8 Type 2 diabetes mellitus E11.9 (1) Anemia Anemia type: unspecified type Qualified Code(s): D64.9 - Anemia, unspecified
[2023-12-10 14:43] LABS: Immunoglobulin A 206.2 mg/dl (70-400); Immunoglobulin G 959.6 mg/dl (635-1741); Immunoglobulin M 41.9 mg/dl (45-281)
[2023-12-10] MEDS: OPTIRAY 320 100ml IV ONE (14:44)
--- NOTE | 2023-12-10 15:22 | CT Scan Report ---
CHEST CT WITH CONTRAST CT DOSE: 494.35 mGy.cm HISTORY: Screening study the patient with possible malignancy with weight loss 40lbs weight loss, el evated LDH r/o malignancy TECHNIQUE: Multiaxial CT images of the chest were performed following the IV administration of 94 cc of Optiray. A dose lowering technique was utilized adhering to the principles of ALARA. COMPARISON: CT abdomen and pelvis 12/09/2023 FINDINGS: No dominant thyroid nodule or pathologically enlarged lymph nodes. Mild cardiomegaly with t race pericardial and pleural effusions. No thoracic aortic aneurysm. Unremarkable pulmonary artery. M ild subsegmental bibasilar atelectasis. There are no suspicious pulmonary nodule or mass is identifie d. Central airways are patent. No acute abnormality of the imaged upper abdomen. There is moderate colonic fecal retention. No destr uctive bone lesions identified. Mild generalized body wall edema. IMPRESSION: 1. Cardiomegaly with trace pericardial and pleural effusions. 2. Mild subsegmental bibasilar atelectasis. 3. No lymphadenopathy or airspace consolidation typical for pneumonia. ACT 112: Negative or not required by law. Electronically signed by: Thomas Henderson M.D. 12/10/2023 3:20 PM
[2023-12-10] MEDS: MIRTAZAPINE TAB 15 MG TAB PO SCH (20:11)
--- NOTE | 2023-12-11 05:23 | Electrocardiogram Report ---
Test Reason : Blood Pressure : / mmHG Vent. Rate : 065 BPM Atrial Rate : 065 BPM P-R Int : 146 ms QRS Dur : 096 ms QT Int : 412 ms P-R-T Axes : 037 024 048 degrees QTc Int : 428 ms Normal sinus rhythm Low voltage QRS Borderline ECG No previous ECGs available Confirmed by Saud Ndiaye ([id number]) on 12/11/2023 5:22:41 AM Referred By: Allyssa Balderas Confirmed By:Saud Ndiaye
[2023-12-11 07:23] LABS: Albumin Globulin Ratio 1.7 (0.9-2); BUN Creatinine Ratio 19.3 (10-20); Bilirubin,Total 2.7 mg/dl (0.2-1.0); Calcium 9.3 mg/dl (8.6-10.3); Creatinine Clr Calc Pharmacy 70.5 ml/min; Est GFR (African American) 105.1 ml/min; Est GFR (Non-African American) 90.7 ml/min; Globulin 2.3 gm/dl (2.5-4.0); Potassium 3.7 mmol/L (3.5-5.1); Total Protein 6.3 gm/dl (6.0-8.3)
[2023-12-11 07:32] LABS: Basophils # (auto) 0.01 K/uL (0.00-0.20); Basophils % (auto) 0.4 %; Eosinophils % (auto) 4.5 %; Hematocrit (blood only) 25.3 % (37.0-47.0); Hemoglobin 8.9 g/dl (12.0-16.0); Immature Granulocytes # (auto) 0.01 K/uL (0.01-0.20); Immature Granulocytes % (auto) 0.4 %; Lymphocytes # (auto) 1.03 K/uL (1.20-3.40); Lymphocytes % (auto) 46.2 %; Mean Corpuscular Hemoglobin 38.2 pg (25.0-34.0); Mean Corpuscular Hgb Conc 35.2 g/dL (32.0-36.0); Mean Corpuscular Volume 108.6 fL (80.0-100.0); Mean Platelet Volume 10.7 fL (9.4-12.4); Monocytes % (auto) 4.5 %; Neutrophils # (auto) 0.98 K/uL (1.40-6.50); Ovalocytes 1+; Platelet Count 107 K/uL (130-400); Polychromasia 1+; Red Blood Count 2.33 M/uL (4.20-5.40); Tear Drop Cells 1+; White Blood Count 2.23 K/ul (4.8-10.8)
--- NOTE | 2023-12-11 09:11 | Progress Note ---
Date of Service December 11, 2023 Assessment & Plan (1) Anemia: Anemia type: unspecified type Qualified Code(s): D64.9 - Anemia, unspecified (2) Generalized weakness: (3) Pancytopenia: Plan Although pancytopenia with macrocytic anemia could be explained by severe B12 deficiency, it is unclear why she has significantly elevated LDH although ineffective erythropoiesis in the setting of severe B12 deficiency may be contributing to LDH elevation. René test was negative which is not suggestive of hemolytic anemia. Quantitative immunoglobulins also unremarkable. Would therefore recommend bone marrow biopsy to rule out underlying malignancy including MDS/acute leukemia/lymphoma in the setting of significantly elevated LDH, Significant weight loss -Bone marrow biopsy On Wednesday -Continue with daily parenteral B12 supplementation -Will follow-up on SPEP with MARLY and serum free light chains Admission and Anticipated Discharge Date Admission Date: December 09, 2023 Subjective Denies any new complaints. Hemoglobin/hematocrit stable at 8.9/25.3. ANC lower at 980. Quantitative immunoglobulins essentially unremarkable Results & Data Vital Signs (Past 12 Hours) Vital Signs Temp Pulse Pulse Resp BP Pulse Ox O2 Del Method 12/11/23 07:41 36.5 C 60 18 153/67 H 97 Room Air 12/11/23 03:11 36.4 C L 88 18 169/71 H 95 Room Air 12/11/23 00:19 51 L 12/10/23 22:34 36.6 C 57 L 18 137/74 96 Room Air
--- NOTE | 2023-12-11 09:48 | Hospitalist Progress Note ---
Date of Service December 11, 2023 Assessment & Plan (1) Anemia: Plan: presented after call from outside provider that she report to the ER. Generalized weakness over the last 3 to 4 months, however no acute symptoms on admission. states has had poor appetite with foamy vomit (that has resolved). Poor nutritional intake. - patient with Hgb, 5.6 upon admission --> received 2 units PRBCs - MCV, 137.6; RDW, 18.3; TBili, 2.3; Retic Ct, 1.62% - iron panel: Fe, 228; ferritin, 121.5; transferrin sat % - tick panel: negative, Babesia PCR pending - B12 - undetectable , folate WNL - IM B12 qAM - denies ETOH use Hematology consulted, appreciate recs - chest CT without signs of malignancy - SPEP with MARLY and serum free light chains pending - continues to have LDH elevation, plan for bone marrow biopsy on Wednesday Copper level pending Add PT eval for reported weakness and balance difficulty - Ortho VS WNL AM CBC and CMP (2) Decreased appetite: Plan: Decreased appetite over last few years, 45 lb weight loss in 2.5 years, estimates daily caloric intake of 400 kcal - CTAP: Left inquinal hernia with multiple loops of bowel, non- obstructed. Moderate fecal retention - patient also reports struggling with constipation - Daily Miralax and Senna - Check B1 level, pending - Multivitamin qAM dietitian following - Boost BID - schedule PPI (3) Anxiety with depression: Plan: Patient has been taking her Zoloft irregularly, but knows her mental health would benefit from consistent use - agreeable to add Remeron, start at 7.5mg - may be able to wean dose of zoloft, continue to monitor (4) Type 2 diabetes mellitus: Plan: - last A1C, 6.5; patient has stopped taking her metformin - insulin aspart ordered (for meals and carb correction) BSG ACHS Plan Chronic Stable Medical Problems: * Hypothyroidism - TSH, 0.394, continue levothyroxine * Dyslipidemia - continue Lipitor * Hypertension - continue losartan Disposition: continued inpatient stay DVT prophylaxis: SCD LM for granddaughterJennifer per patient request - patient tells me granddaughter has meetings today, I asked patient to provide her RN when a good time would be for me to contact her and I will call her Admission and Anticipated Discharge Date Admission Date: December 09, 2023 Subjective Patient lying in bed. Reports getting dizzy when she was up getting washed up - states this happens at home too. had a small bowel movement no new symptoms telemetry sinus rhythm in 60s Review of Systems Review of Systems: All systems reviewed & are unremarkable except as noted in Subjective Physical Exam Physical Exam: General: NAD, thin, fraile appearing, VS as above Resp: normal respiratory effort, lungs clear to auscultation CV: RRR, no murmur, Abd: normal bowel sounds, soft, non tender, no hepatosplenomegaly Extremities: Moves all extremities, no edema Neuro: A&O x3, Results & Data Results & Data Vital Signs (Past 12 Hours) Vital Signs Temp Pulse Pulse Resp BP Pulse Ox O2 Del Method 12/11/23 09:00 57 L 12/11/23 07:41 36.5 C 60 18 153/67 H 97 Room Air 12/11/23 03:11 36.4 C L 88 18 169/71 H 95 Room Air 12/11/23 00:19 51 L 12/10/23 22:34 36.6 C 57 L 18 137/74 96 Room Air Laboratory Results CBC, chemistry, LDH, CRP reviewed Diagnostic Findings chest CT reviewed PG Care Time/CCT Total # of Minutes Spent Total Time Spent with Patient: Total time spent is greater than 50% in coordination of care (as documented) at patient's floor/unit and/or counseling patient: Coding Level of Care Code 23643 SUB INP/OBS CARE 3/50MIN Diagnoses Anemia D64.9 Anemia type: unspecified type Decreased appetite R63.0 Anxiety with depression F41.8 Type 2 diabetes mellitus E11.9 (1) Anemia Anemia type: unspecified type Qualified Code(s): D64.9 - Anemia, unspecified
[2023-12-11] MEDS: PANTOprazole 40 MG TAB PO SCH (12:04)
[2023-12-12 08:01] LABS: Est GFR (African American) 105.1 ml/min; Est GFR (Non-African American) 90.7 ml/min; Potassium 3.9 mmol/L (3.5-5.1)
[2023-12-12 08:02] LABS: Albumin Globulin Ratio 1.8 (0.9-2); Albumin Level 3.9 gm/dl (3.4-5.0); BUN Creatinine Ratio 15.8 (10-20); Bilirubin,Total 2.4 mg/dl (0.2-1.0); Calcium 9.5 mg/dl (8.6-10.3); Creatinine Clr Calc Pharmacy 70.5 ml/min; Globulin 2.2 gm/dl (2.5-4.0); Total Protein 6.1 gm/dl (6.0-8.3)
[2023-12-12 08:13] LABS: Anisocytosis Present; Basophils # (auto) 0.01 K/uL (0.00-0.20); Basophils % (auto) 0.4 %; Eosinophils # (auto) 0.11 K/uL (0.00-0.50); Eosinophils % (auto) 3.9 %; Hematocrit (blood only) 23.5 % (37.0-47.0); Hemoglobin 8.1 g/dl (12.0-16.0); Lymphocytes # (auto) 1.31 K/uL (1.20-3.40); Lymphocytes % (auto) 46.5 %; Mean Corpuscular Hemoglobin 37.5 pg (25.0-34.0); Mean Corpuscular Hgb Conc 34.5 g/dL (32.0-36.0); Mean Corpuscular Volume 108.8 fL (80.0-100.0); Mean Platelet Volume 10.9 fL (9.4-12.4); Monocytes # (auto) 0.21 K/uL (0.11-0.59); Monocytes % (auto) 7.4 %; Neutrophils # (auto) 1.18 K/uL (1.40-6.50); Neutrophils % (auto) 41.8 %; Ovalocytes 1+; Platelet Count 104 K/uL (130-400); Red Blood Count 2.16 M/uL (4.20-5.40); Tear Drop Cells 1+; White Blood Count 2.82 K/ul (4.8-10.8)
--- NOTE | 2023-12-12 13:56 | Hospitalist Progress Note ---
Date of Service December 12, 2023 Assessment & Plan (1) Anemia: Plan: presented after call from outside provider that she report to the ER. Generalized weakness over the last 3 to 4 months, however no acute symptoms on admission. states has had poor appetite with foamy vomit (that has resolved). Poor nutritional intake. - patient with Hgb, 5.6 upon admission --> received 2 units PRBCs - MCV, 137.6; RDW, 18.3; TBili, 2.3; Retic Ct, 1.62% - iron panel: Fe, 228; ferritin, 121.5; transferrin sat % - tick panel: negative, Babesia PCR pending - B12 - undetectable , folate WNL - IM B12 qAM - denies ETOH use Hematology consulted, appreciate recs - chest CT without signs of malignancy - SPEP with MARLY and serum free light chains pending - continues to have LDH elevation, plan for bone marrow biopsy on Wednesday Copper level pending Add PT eval for reported weakness and balance difficulty - Ortho VS WNL - PT recommend home with home health AM CBC and BMP (2) Decreased appetite: Plan: Decreased appetite over last few years, 45 lb weight loss in 2.5 years, estimates daily caloric intake of 400 kcal - CTAP: Left inquinal hernia with multiple loops of bowel, non- obstructed. Moderate fecal retention - patient also reports struggling with constipation - Daily Miralax and Senna - Check B1 level, pending - Multivitamin qAM dietitian following - Boost BID - schedule PPI (3) Anxiety with depression: Plan: Patient has been taking her Zoloft irregularly, but knows her mental health would benefit from consistent use - good response to Remeron 7.5 mg, will continue - may be able to wean dose of zoloft, continue to monitor (4) Type 2 diabetes mellitus: Plan: - last A1C, 6.5; patient has stopped taking her metformin - insulin aspart ordered (for meals and carb correction) BSG ACHS Plan Chronic Stable Medical Problems: * Hypothyroidism - TSH, 0.394, continue levothyroxine * Dyslipidemia - continue Lipitor * Hypertension - continue losartan Disposition: continued inpatient stay DVT prophylaxis: SCD Admission and Anticipated Discharge Date Admission Date: December 09, 2023 Subjective Patient sitting up in the chair at the time of my exam. States that she has noticed her appetite improving. Has not had a sizable bowel movement yet. But denies abdominal pain. No family present at bedside, but patient states they have been following closely with her portal and visited her yesterday. They have no questions at this time. Telemetry sinus rhythm 50s and 60s Physical Exam Physical Exam: General: NAD, thin, fraile appearing - but improved from admission, VS as above Resp: normal respiratory effort, lungs clear to auscultation CV: RRR, no murmur, Abd: normal bowel sounds, soft, non tender, no hepatosplenomegaly Extremities: Moves all extremities, no edema Neuro: A&O x3, Results & Data Results & Data Vital Signs (Past 12 Hours) Vital Signs Temp Pulse Pulse Resp BP Pulse Ox O2 Del Method 12/12/23 11:03 36.6 C 55 L 18 137/65 100 Room Air 12/12/23 07:50 61 12/12/23 07:14 36.8 C 53 L 18 147/81 H 98 Room Air 12/12/23 03:18 36.7 C 59 L 18 156/76 H 96 Room Air Laboratory Results CBC and chemistry reviewed PG Care Time/CCT Total # of Minutes Spent Total Time Spent with Patient: Total time spent is greater than 50% in coordination of care (as documented) at patient's floor/unit and/or counseling patient: Coding Level of Care Code 86120 SUB INP/OBS CARE 2/35MIN Diagnoses Anemia D64.9 Anemia type: unspecified type Decreased appetite R63.0 Anxiety with depression F41.8 Type 2 diabetes mellitus E11.9 (1) Anemia Anemia type: unspecified type Qualified Code(s): D64.9 - Anemia, unspecified
[2023-12-13 08:04] LABS: BUN Creatinine Ratio 17.6 (10-20); Calcium 9.9 mg/dl (8.6-10.3); Creatinine Clr Calc Pharmacy 59.1 ml/min; Est GFR (African American) 99.2 ml/min; Est GFR (Non-African American) 85.6 ml/min; Potassium 4.3 mmol/L (3.5-5.1)
[2023-12-13 08:06] LABS: Basophils # (auto) 0.01 K/uL (0.00-0.20); Basophils % (auto) 0.3 %; Eosinophils # (auto) 0.12 K/uL (0.00-0.50); Eosinophils % (auto) 3.1 %; Hematocrit (blood only) 25.6 % (37.0-47.0); Hemoglobin 8.7 g/dl (12.0-16.0); Immature Granulocytes # (auto) 0.02 K/uL (0.01-0.20); Immature Granulocytes % (auto) 0.5 %; Lymphocytes % (auto) 33.2 %; Mean Corpuscular Hemoglobin 37.5 pg (25.0-34.0); Mean Corpuscular Volume 110.3 fL (80.0-100.0); Mean Platelet Volume 11.9 fL (9.4-12.4); Monocytes # (auto) 0.39 K/uL (0.11-0.59); Neutrophils # (auto) 2.07 K/uL (1.40-6.50); Neutrophils % (auto) 52.9 %; Nucleated RBC # (auto) 0.02 K/uL (0.00-0.12); Nucleated RBC % (auto) 0.5 %; Platelet Count 107 K/uL (130-400); Red Blood Count 2.32 M/uL (4.20-5.40); White Blood Count 3.91 K/ul (4.8-10.8)
[2023-12-13 08:44] LABS: Anisocytosis Present; Macrocytosis Present; Ovalocytes 1+; Polychromasia 1+
--- NOTE | 2023-12-13 16:01 | Discharge Summary ---
Discharge Summary Date of Service December 13, 2023 Principal Dx & Hospital Course #1 = Principal Diagnosis (1) Anemia: presented after call from outside provider that she report to the ER. Generalized weakness over the last 3 to 4 months, however no acute symptoms on admission. states has had poor appetite with foamy vomit (that has resolved). Poor nutritional intake. - patient with Hgb, 5.6 upon admission --> received 2 units PRBCs - MCV, 137.6; RDW, 18.3; TBili, 2.3; Retic Ct, 1.62% - iron panel: Fe, 228; ferritin, 121.5; transferrin sat % - tick panel: negative, Babesia PCR pending - B12 - undetectable , folate WNL - IM B12 qAM - denies ETOH use Hematology consulted, appreciate recs - chest CT without signs of malignancy - SPEP with MARLY and serum free light chains pending - continues to have LDH elevation, plan for bone marrow biopsy on Wednesday Copper level pending Add PT eval for reported weakness and balance difficulty - Ortho VS WNL - PT recommend home with home health - arranged by CM patient was kept inpatient for bone marrow biopsy that was told to happen today unfortunately we do not have the staff to accommodate this. She will be discharged today with an outpatient bone marrow biopsy scheduled for 7:30 AM on 12/14. outpatient follow-up with Dr. Victoria will be arranged (2) Decreased appetite: Decreased appetite over last few years, 45 lb weight loss in 2.5 years, estimates daily caloric intake of 400 kcal - CTAP: Left inquinal hernia with multiple loops of bowel, non- obstructed. Moderate fecal retention - patient also reports struggling with constipation - Daily Miralax and Senna - Check B1 level, pending - Multivitamin qAM dietitian following - Boost BID - patient did not like the flavor of her boost, encouraged her to try multiple options from local store to find a protein supplement that she likes - schedule PPI (3) Anxiety with depression: Patient has been taking her Zoloft irregularly, but knows her mental health would benefit from consistent use - good response to Remeron 7.5 mg, will continue - may be able to wean dose of zoloft, will defer to outpatient provider (4) Type 2 diabetes mellitus: - last A1C, 6.5; patient has stopped taking her metformin Plan Chronic Stable Medical Problems: * Hypothyroidism - TSH, 0.394, continue levothyroxine * Dyslipidemia - continue Lipitor * Hypertension - continue losartan Disposition: discharged home today with home health. Outpatient bone marrow biopsy scheduled for 12/14. patient will be followed by ambulatory case management to make sure she is not lost to follow-up. Notes For Next Care Provider Admitted with anemia, progressive unintentional weight gain and fatigue. Found to be severely iron deficient. Hematological workup pending for secondary causes. Bone marrow biopsy scheduled for 12/14. Encouraged to continue multivitamin, Bowel regimen and rmmx-dyl-fgygrdv protein supplement. Will be followed by ambulatory case management Medication Changes From Visit added Remeron PPI scheduled B12 injections Admission HPI Per Admitting Provider Patient is 73 yo F w/ PMHx of T2DM, HTN, hypothyroidism, chronic constipation, anxiety/depression, generalized weakness, leg swelling of 2-2.5 months (end of September) presents to the ED after outpatient labs today showed severe anemia (Hgb, 5.9; repeat Hgb in ED, 5.6. Patient noticed a few months ago that she was vomiting frequently (whitish-foamy stuff)and stopped taking many of her medications. Patient only continued levothyroxine, calcium, Lipitor, losartan. Patient continued taking intermittently the Protonix and sertraline. Patient has repeatedly declined a colonoscopy but was last screened for CRC using Cologuard about 8 months ago. Patient has not noticed any roseanne blood in her stool at all. Patient is a never smoker has not drank alcohol for ~ 4 yrs but was a social drinker in the past (< 7 drinks/week). Patient has not had much of an appetite for ~ 5-6 months. Typical daily intake has probably been ~ 400 calories and patient has lost 18 kg in last 2.5 yrs. Patient's last mammogram was in 2018. Patient has a family Hx of cancer--mom had stomach cancer, sister had breast cancer and lung cancer (was never smoker, from it in her 30s in 1985, 2 yrs older than pt) Patient is uncertain what she would like her code status to be. Discharge Exam General: NAD, thin, fraile appearing - but improved from admission, VS as above Resp: normal respiratory effort, lungs clear to auscultation CV: RRR, no murmur, Abd: normal bowel sounds, soft, non tender, no hepatosplenomegaly Extremities: Moves all extremities, no edema Neuro: A&O x3, Updated Medication List Medication Instructions Recorded Confirmed Type blood-glucose meter (Blood Glucose #1 ea 05/08/21 12/09/23 Rx Monitoring kit) atorvastatin 20 mg tablet 20 mg PO QPM #90 tabs 04/01/23 12/09/23 Rx losartan 100 mg tablet 100 mg PO DAILY #90 tabs 07/06/23 12/09/23 Rx sertraline 50 mg tablet 75 mg (1.5 x 50 mg) PO DAILY #135 11/02/23 12/09/23 Rx tabs levothyroxine 125 mcg tablet 125 mcg PO DAILY #14 tabs 11/30/23 12/09/23 Rx cyanocobalamin (vitamin B-12) 1,000 mcg IM DIRECTED #10 mL 12/13/23 Rx 1,000 mcg/mL injection solution mirtazapine 15 mg tablet 7.5 mg (1/2 x 15 mg) PO HS 30 days 12/13/23 Rx #15 tabs bcsykszf-xwc-zzvfx acid 0.4 1 tab PO QAM #30 tabs 12/13/23 Rx mg-lycopene 300 mcg-lutein 250 mcg tablet (Cerovite Senior) pantoprazole 40 mg tablet,delayed 40 mg PO DAILY Heartburn #30 tabs 12/13/23 Rx release polyethylene glycol 3350 17 gram 17 g PO DAILY #30 ea 12/13/23 Rx oral powder packet (Miralax) sennosides 8.6 mg-docusate sodium 1 tab PO QAM #30 tabs 12/13/23 Rx 50 mg tablet (Senokot-S) syringe (disposable) 1 mL #10 ea 12/13/23 Rx Hospital Stay Data Consultations 12/09/23 17:02 ED Decision to Admit Stat 12/10/23 09:40 Consult Hematology Routine Diagnostic Imagining Performed Chest X-Ray 12/09/23 16:04 XR chest 1V portable HISTORY: 73 years-old Female Chest pain, nonspecific COMPARISON: None TECHNIQUE: AP view of the chest FINDINGS: Cardiac silhouette is enlarged. Atherosclerosis of the aorta. No pneumothorax, pleural effusion or airspace consolidation. Mild linear left basilar atelectasis versus scarring. The bones of the chest appear grossly intact. Spondylitic spurring of the spine. IMPRESSION: Cardiomegaly without acute process. ACT 112: Negative or not required by law. The above report was generated using voice recognition software. It may contain grammatical, syntax or spelling errors. Electronically signed by: Thomas Henderson M.D. 12/09/2023 4:49 PM Abdomen/Pelvis CT 12/09/23 19:38 Exam(s): CT ABDOMEN + PELVIS With Contrast IV Amt: 93ml EXAM: CT Abdomen and Pelvis With Intravenous Contrast CLINICAL HISTORY: Reason for exam: anemia, LLQ tender hernia. TECHNIQUE: Axial computed tomography images of the abdomen and pelvis with intravenous contrast. CTDI is 14.63 mGy and DLP is 706.54 mGy-cm. Automated exposure control was utilized for the study. A dose lowering technique was utilized adhering to the principles of ALARA. CONTRAST: Patient received 93ml of IV contrast COMPARISON: No relevant prior studies available. FINDINGS: Lung bases: Unremarkable. No mass. No consolidation. ABDOMEN: Liver: Unremarkable. No focal hepatic lesion. Gallbladder and bile ducts: Unremarkable. No calcified stones. No ductal dilation. Pancreas: Unremarkable. No mass. No ductal dilation. Spleen: Unremarkable. No splenomegaly. Adrenals: Unremarkable. No mass. Kidneys and ureters: Unremarkable. No hydronephrosis or delayed nephrogram. Stomach and bowel: Moderate fecal retention, correlate for fecal impaction. LEFT inguinal hernia contains multiple loops of small bowel, which are nonobstructed. No acute diverticulitis. No bowel obstruction. No free air. PELVIS: Appendix: No findings to suggest acute appendicitis. Bladder: Unremarkable. No mass. Reproductive: Unremarkable as visualized. ABDOMEN and PELVIS: Intraperitoneal space: See above. Bones/joints: Degenerative changes of the spine. No acute fracture. No dislocation. Soft tissues: See above. Vasculature: Atherosclerotic changes of the aorta. No abdominal aortic aneurysm. Lymph nodes: Unremarkable. No enlarged lymph nodes. IMPRESSION: 1. No acute diverticulitis. No bowel obstruction. No free air. 2. Moderate fecal retention, correlate for fecal impaction. 3. LEFT inguinal hernia contains multiple loops of small bowel, which are nonobstructed. Electronically signed by: Alf Resendez MD 12/09/23 23:[address] 12/10/23 13:[address] WITH CONTRAST CT DOSE: 494.35 mGy.cm HISTORY: Screening study the patient with possible malignancy with weight loss 40lbs weight loss, elevated LDH r/o malignancy TECHNIQUE: Multiaxial CT images of the chest were performed following the IV administration of 94 cc of Optiray. A dose lowering technique was utilized a dhering to the principles of ALARA. COMPARISON: CT abdomen and pelvis 12/09/2023 FINDINGS: No dominant thyroid nodule or pathologically enlarged lymph nodes. Mild cardiomegaly with trace pericardial and pleural effusions. No thoracic aortic aneurysm. Unremarkable pulmonary artery. Mild subsegmental bibasilar atelectasis. There are no suspicious pulmonary nodule or mass is identified. Central airways are patent. No acute abnormality of the imaged upper abdomen. There is moderate colonic fecal retention. No destructive bone lesions identified. Mild generalized body wall edema. IMPRESSION: 1. Cardiomegaly with trace pericardial and pleural effusions. 2. Mild subsegmental bibasilar atelectasis. 3. No lymphadenopathy or airspace consolidation typical for pneumonia. ACT 112: Negative or not required by law. Electronically signed by: Thomas Henderson M.D. 12/10/2023 3:20 PM Pending Results Patient Have Any Pending Studies at Discharge: Yes (ordered by Dr Victoria ) Discharge Instructions Given to Patient (Per Discharging Provider) Ms. Osborne, You were hospitalized after being profoundly anemic. The only cause for the anemia that we found during your hospital stay was vitamin B12 deficiency. We replaced this with injections that you will continue at discharge. You were seen by the floor sander, Dr. Victoria, that has ordered multiple tests that are still pending and a bone marrow biopsy that is scheduled for 12/14 at 7:30 AM. - Arrive at the front entrance. No food or drink prior. Okay to take meds with small amount of water. B12 deficiency is likely related to your poor oral intake. We started you on Re guilherme to help stimulate your appetite and help with your depression. Continue with multivitamin and nutrional shakes. Recommendations * Continue Remeron and Zoloft * Take a daily multivitamin - this can be any brand * Find a protein shake that you like * Vitamin B12 injections on 12/14, 12/16,12/19,12/21,12/23,12/26 and 01/02. Your daughter can provide these to you or can be arranged through home health (if it is off by a day that is okay) * After your last injection, start on oral vitamin B12 supplementation 2000mcq every day. This can be purchased over the counter. * Take your pantoprazole everyday * Continue on bowel regiment - can use miralax and Colace over the counter Take your medications as instructed; do not skip a dose of your medicines. Make sure all of your doctors know every medicine you are taking (including iout-rwq-oawzpny medicines, vitamins, and supplements). Call your primary care provider before taking any new medicines (including over- the-counter medicines, vitamins, and supplements), because some of these may interact with your current medications, or may make your symptoms worse. Tell your primary care provider if you cannot afford your medications. Activity: You can do normal everyday activities as your body allows. Take rest breaks if you feel tired. Do not overexert. Stop activity if you have pain, shortness of breath or feel dizzy. Follow-up appointments: Make an appointment with your primary care physician within one week of discharge. A copy of this summary will be sent to them. Every time you see your primary care physician, or any other doctor, bring your medication list, and a list of questions. CONTACT YOUR PRIMARY CARE PROVIDER if you experience any of the following: Shortness of breath or difficulty breathing Fevers or chills Feeling tired with normal activity or experiencing dizziness or fainting Difficulty following your treatment plan, or difficulty taking medications CALL 911 OR GO TO THE EMERGENCY DEPARTMENT if you experience any of the following: Severe abdominal pain or nausea/vomiting Severe chest pain, or chest pain that radiates (moves) to your jaw or arm Sudden, severe shortness of breath or difficulty breathing Thank you for allowing us to participate in your care. Iesha Blandon PA-C Total Time Total Time Spent Total Time Spent (In Minutes): Time spend day of discharge 45 minutes including direct patient care, medication reconciliation, documentation, review of labs and images, and coordination of care. Coding Level of Care Code 77488 INP/OBS DISCH >30 MIN Diagnoses Anemia D64.9 Anemia type: unspecified type Decreased appetite R63.0 Anxiety with depression F41.8 Type 2 diabetes mellitus E11.9
[2023-12-14 17:47] LABS: Albumin 3.8 g/dL (3.8-4.8); Alpha 1 Globulin 0.2 g/dL (0.2-0.3); Alpha 2 Globulin 0.4 g/dL (0.5-0.9); Beta-1-Globulin 0.3 g/dL (0.4-0.6); Beta-2-Globulin 0.3 g/dL (0.2-0.5); Copper, Serum 101 mcg/dL (70-175); Gamma Globulin 0.8 g/dL (0.8-1.7); Haptoglobin <10 mg/dL (43-212); Monoclonal Protein Band 1 DNR g/dL (NONE DETECTED); Monoclonal Protein Band 2 DNR g/dL (NONE DETECTED); Monoclonal Protein Band 3 DNR g/dL (NONE DETECTED); Total Protein 5.9 g/dL (6.1-8.1)
[2023-12-15 14:37] LABS: Babesia microti DNA Not Detected (Not Detected)
== END 2023-12-13 17:00 | disposition home health service (06) | DRG 812 ==
LOC: ED 15:41 → 2S 19:50 → SUATTDRO 19:50 → 2S 20:52